=== PATIENT | female | born 1940 | race Caucasian/White ===

== ENCOUNTER 2020-12-11 21:54 | Inpatient (IN) | payer MEDICARE, BC ==
[2020-12-11 23:08] LABS: #Basophils 0.1 10x3/uL (0.0-0.2); #Monocytes 1.2 10x3/uL (0.0-1.1); #Neutrophils 10.6 10x3/uL (1.5-8.4); %Basophils 0.5 % (0.0-2.0); %Eosinophils 0.3 % (0.0-6.0); %Lymphocytes 9.7 % (18.0-47.0); %Monocytes 8.8 % (0.0-10.0); %Neutrophils 80.2 % (40.0-75.0); Hemoglobin 13.5 g/dL (12.0-15.5); Mean Corpuscular HGB CONC 33.3 g/dL (32.0-36.0); Mean Corpuscular Hemoglobin 29.9 pg (27.0-33.0); Mean Corpuscular Volume 89.8 fl (81.6-98.3); Mean Platelet Volume 9.9 fl (7.4-10.4); Platelet Count 323 10x3/uL (150-450); RBC Distribution Width 14.6 % (11.5-14.5); Red Blood Cell (RBC) Count 4.51 10x6/uL (3.90-5.03); White Blood Cell (WBC) Count 13.2 10x3/uL (3.5-10.5)
[2020-12-11 23:21] LABS: ALT (SGPT) 16 U/L (8-55); AST (SGOT) 18 U/L (5-34); Albumin 4.5 g/dL (3.4-4.8); Alkaline Phosphatase 82 U/L (40-110); Anion Gap 16 mmol/L (10-20); BUN (Urea Nitrogen) 33 mg/dL (9.8-20.1); Bilirubin, Total 0.8 mg/dL (0.2-1.2); CK (CPK) 129 U/L (29-168); Calc. Creatinine Clearance 0 mL/min (70-130); Calcium 9.4 mg/dL (7.8-10.44); Carbon Dioxide 22 mmol/L (23-31); Chloride 103 mmol/L (98-107); Globulin 2.8 g/dL (2.4-3.5); Glucose 132 mg/dL (83-110); Magnesium 2.2 mg/dL (1.6-2.6); Potassium 4.1 mmol/L (3.5-5.1); Protein, Total 7.3 g/dL (5.8-8.1); Sodium 137 mmol/L (136-145)
[2020-12-11 23:23] LABS: Acetaminophen Less than 6.0 mcg/mL (10.0-30.0); Alcohol Less than 10 mg/dL (Less than 10); Salicylate Less than 8.0 mg/dL (15.0-30.0)
[2020-12-12 00:44] LABS: Bilirubin Neg (Negative); Blood, Urine 25 (Negative); Clarity Cloudy (Clear); Glucose, Urine (Dipstick) Normal (Negative); Ketone, Urine 15 mg/dL (Negative); Leukocyte 25 (Negative); Nitrite Positive (Negative); Protein, Urine (Dipstick) 30 mg/dl (Neg-Trace); Urobilinogen Normal mg/dL (Less than 2)
[2020-12-12 00:51] LABS: Bacteria/HPF 3+ HPF (None Seen); RBC/HPF 0-3 HPF (0-3); Renal Epithelial 0-3 HPF (None Seen); Squamous Epithelial 0-3 HPF (0-3)
[2020-12-12 00:52] LABS: Mucous/LPF 3+ LPF (<2+)
[2020-12-12 00:56] LABS: Amphetamine Not Detected (NotDetected); Barbiturates Screen Not Detected (NotDetected); Benzodiazepine Screen Not Detected (NotDetected); Cocaine Metabolite Screen Not Detected (NotDetected); Methadone Not Detected (NotDetected); Methamphetamine Not Detected (NotDetected); Opiate Screen Not Detected (NotDetected); Oxycodone Screen Not Detected (NotDetected); Phencyclidine (PCP) Not Detected (NotDetected); THC/Cannabinoid Screen Not Detected (NotDetected); Tricyclic Screen Detected (NotDetected)
[2020-12-12] MEDS ORDERED: Metoprolol Tartrate 25 MG TAB ONE (01:54)
[2020-12-12] MEDS ORDERED: Cefepime 2 GM VIAL ONE (02:31)
[2020-12-12] MEDS ORDERED: Ziprasidone 20 MG VIAL ONE (02:38)
[2020-12-12] MEDS ORDERED: Sterile Water 10 ML ONE (02:39)
[2020-12-12] MEDS: Sodium Chloride 0.9% 1,000 ML IV SCH ×2 (04:10→16:59)
[2020-12-12] MEDS: Levothyroxine 150 MCG TAB PO SCH (09:50)
[2020-12-12] MEDS: Metoprolol Tartrate 25 MG TAB PO SCH ×2 (09:53→20:34)
[2020-12-12] MEDS: Magnesium Oxide 400 MG TAB PO SCH (09:54)
[2020-12-12] MEDS: Amlodipine 5 MG TAB PO SCH (09:55)
[2020-12-12] MEDS: Apixaban 5 MG TAB PO SCH ×2 (09:55→20:34)
[2020-12-12] MEDS: OXcarbazepine 300 MG TAB PO SCH ×3 (12:41→20:35)
[2020-12-12] MEDS: Cefepime 2 GM in Sodium Chloride 0.9% 100 ML IVPB SCH (15:31)
[2020-12-13 01:13] LABS: SARS-CoV-2 PCR by NAA Not Detected (NotDetected)
[2020-12-13] MEDS: Cefepime 2 GM in Sodium Chloride 0.9% 100 ML IVPB SCH ×2 (04:46→14:11)
[2020-12-13 05:03] LABS: #Basophils 0.1 10x3/uL (0.0-0.2); #Eosinphils 0.1 10x3/uL (0.0-0.5); #Monocytes 1.2 10x3/uL (0.0-1.1); #Neutrophils 11.6 10x3/uL (1.5-8.4); %Basophils 0.6 % (0.0-2.0); %Eosinophils 0.4 % (0.0-6.0); %Lymphocytes 6.4 % (18.0-47.0); %Monocytes 8.4 % (0.0-10.0); %Neutrophils 83.8 % (40.0-75.0); Hemoglobin 13.4 g/dL (12.0-15.5); Mean Corpuscular HGB CONC 33.4 g/dL (32.0-36.0); Mean Corpuscular Hemoglobin 30.9 pg (27.0-33.0); Mean Corpuscular Volume 92.4 fl (81.6-98.3); Mean Platelet Volume 10.4 fl (7.4-10.4); Platelet Count 293 10x3/uL (150-450); RBC Distribution Width 14.5 % (11.5-14.5); Red Blood Cell (RBC) Count 4.34 10x6/uL (3.90-5.03); White Blood Cell (WBC) Count 13.8 10x3/uL (3.5-10.5)
[2020-12-13 05:18] LABS: Anion Gap 16 mmol/L (10-20); BUN (Urea Nitrogen) 18 mg/dL (9.8-20.1); Calc. Creatinine Clearance 92 mL/min (70-130); Calcium 8.6 mg/dL (7.8-10.44); Carbon Dioxide 21 mmol/L (23-31); Chloride 105 mmol/L (98-107); Glucose 129 mg/dL (83-110); Potassium 4.2 mmol/L (3.5-5.1); Sodium 138 mmol/L (136-145)
[2020-12-13] MEDS: Levothyroxine 150 MCG TAB PO SCH (06:39)
[2020-12-13] MEDS: Sodium Chloride 0.9% 1,000 ML IV SCH ×2 (06:40→22:00)
[2020-12-13] MEDS: Apixaban 5 MG TAB PO SCH ×2 (09:12→20:59)
[2020-12-13] MEDS: Magnesium Oxide 400 MG TAB PO SCH (09:12)
[2020-12-13] MEDS: Metoprolol Tartrate 25 MG TAB PO SCH ×2 (09:12→20:59)
[2020-12-13] MEDS: OXcarbazepine 300 MG TAB PO SCH ×2 (09:12→21:00)
[2020-12-13] MEDS: Amlodipine 5 MG TAB PO SCH (09:12)
[2020-12-13] MEDS: Nystatin Powder 15 GM BOT TOP PRN (16:11)
[2020-12-13] MEDS: Gentamicin Ophth Soln 0.3% 5 ml Bottle R EYE SCH ×2 (16:13→21:00)
[2020-12-14] MEDS: Gentamicin Ophth Soln 0.3% 5 ml Bottle R EYE SCH ×6 (01:30→22:36)
[2020-12-14] MEDS: Cefepime 2 GM in Sodium Chloride 0.9% 100 ML IVPB SCH ×2 (02:57→17:03)
[2020-12-14] MEDS: Levothyroxine 150 MCG TAB PO SCH (06:15)
[2020-12-14] MEDS: Nystatin Powder 15 GM BOT TOP PRN (08:42)
[2020-12-14] MEDS: Metoprolol Tartrate 25 MG TAB PO SCH ×2 (08:43→22:34)
[2020-12-14] MEDS: OXcarbazepine 300 MG TAB PO SCH ×2 (08:43→22:33)
[2020-12-14] MEDS: Apixaban 5 MG TAB PO SCH ×2 (08:44→22:36)
[2020-12-14] MEDS: Amlodipine 5 MG TAB PO SCH (08:44)
[2020-12-14] MEDS: Magnesium Oxide 400 MG TAB PO SCH (08:44)
[2020-12-14] MEDS: Sodium Chloride 0.9% 1,000 ML IV SCH ×2 (13:00→22:37)
[2020-12-15] MEDS: Gentamicin Ophth Soln 0.3% 5 ml Bottle R EYE SCH ×6 (01:26→21:18)
[2020-12-15] MEDS: Cefepime 2 GM in Sodium Chloride 0.9% 100 ML IVPB SCH ×2 (02:44→14:23)
[2020-12-15] MEDS: Levothyroxine 150 MCG TAB PO SCH (05:28)
[2020-12-15] MEDS: Magnesium Oxide 400 MG TAB PO SCH (09:10)
[2020-12-15] MEDS: Apixaban 5 MG TAB PO SCH ×2 (09:10→21:18)
[2020-12-15] MEDS: Nystatin Powder 15 GM BOT TOP PRN (09:10)
[2020-12-15] MEDS: OXcarbazepine 300 MG TAB PO SCH ×2 (09:10→21:18)
[2020-12-15] MEDS: Amlodipine 5 MG TAB PO SCH (09:10)
[2020-12-15 09:30] LABS: #Basophils 0.1 10x3/uL (0.0-0.2); #Eosinphils 0.1 10x3/uL (0.0-0.5); #Monocytes 1.9 10x3/uL (0.0-1.1); #Neutrophils 15.8 10x3/uL (1.5-8.4); %Basophils 0.4 % (0.0-2.0); %Eosinophils 0.6 % (0.0-6.0); %Lymphocytes 5.5 % (18.0-47.0); %Neutrophils 83.1 % (40.0-75.0); Hemoglobin 14.2 g/dL (12.0-15.5); Mean Corpuscular HGB CONC 33.4 g/dL (32.0-36.0); Mean Corpuscular Hemoglobin 30.6 pg (27.0-33.0); Mean Corpuscular Volume 91.6 fl (81.6-98.3); Mean Platelet Volume 10.5 fl (7.4-10.4); Platelet Count 308 10x3/uL (150-450); RBC Distribution Width 14.2 % (11.5-14.5); Red Blood Cell (RBC) Count 4.64 10x6/uL (3.90-5.03); White Blood Cell (WBC) Count 19.1 10x3/uL (3.5-10.5)
[2020-12-15] MEDS: Metoprolol Tartrate 25 MG TAB PO SCH ×2 (10:59→21:18)
[2020-12-15] MEDS ORDERED: Metoprolol Tartrate 50 MG TAB PO SCH ×2 (11:00→21:00)
[2020-12-15] MEDS: Sodium Chloride 0.9% 1,000 ML IV SCH (13:03)
[2020-12-16] MEDS: Sodium Chloride 0.9% 1,000 ML IV SCH ×2 (01:20→20:45)
[2020-12-16] MEDS: Gentamicin Ophth Soln 0.3% 5 ml Bottle R EYE SCH ×4 (01:21→13:47)
[2020-12-16] MEDS: Cefepime 2 GM in Sodium Chloride 0.9% 100 ML IVPB SCH ×2 (03:00→14:27)
[2020-12-16] MEDS: Levothyroxine 150 MCG TAB PO SCH (05:37)
[2020-12-16] MEDS: Nystatin Powder 15 GM BOT TOP PRN (11:09)
[2020-12-16] MEDS: Magnesium Oxide 400 MG TAB PO SCH (11:09)
[2020-12-16] MEDS: OXcarbazepine 300 MG TAB PO SCH ×2 (11:09→20:47)
[2020-12-16] MEDS: Metoprolol Tartrate 25 MG TAB PO SCH ×2 (11:09→20:47)
[2020-12-16] MEDS: Apixaban 5 MG TAB PO SCH ×2 (11:09→20:47)
[2020-12-16] MEDS: Amlodipine 5 MG TAB PO SCH (11:10)
[2020-12-17] MEDS: Cefepime 2 GM in Sodium Chloride 0.9% 100 ML IVPB SCH (03:05)
[2020-12-17] MEDS: Levothyroxine 150 MCG TAB PO SCH (05:39)
[2020-12-17] MEDS: Apixaban 5 MG TAB PO SCH ×2 (09:39→22:03)
[2020-12-17] MEDS: Amlodipine 5 MG TAB PO SCH (09:39)
[2020-12-17] MEDS: Metoprolol Tartrate 25 MG TAB PO SCH ×2 (09:39→22:03)
[2020-12-17] MEDS: Magnesium Oxide 400 MG TAB PO SCH (09:40)
[2020-12-17] MEDS: OXcarbazepine 300 MG TAB PO SCH ×2 (09:44→22:03)
[2020-12-17] MEDS: Nystatin Powder 15 GM BOT TOP PRN (09:47)
[2020-12-17] MEDS: Sodium Chloride 0.9% 1,000 ML IV SCH (15:52)
[2020-12-17] MEDS: QUETIAPINE FUMARATE 200 MG PO SCH (18:30)
[2020-12-18] MEDS: Sodium Chloride 0.9% 1,000 ML IV SCH ×2 (09:54→10:30)
[2020-12-18] MEDS: Magnesium Oxide 400 MG TAB PO SCH (09:58)
[2020-12-18] MEDS: Apixaban 5 MG TAB PO SCH ×2 (09:59→21:09)
[2020-12-18] MEDS: Metoprolol Tartrate 25 MG TAB PO SCH ×2 (10:00→21:09)
[2020-12-18] MEDS: OXcarbazepine 300 MG TAB PO SCH ×2 (10:05→21:09)
[2020-12-18] MEDS: Levothyroxine 150 MCG TAB PO SCH (10:05)
[2020-12-18] MEDS: QUETIAPINE FUMARATE 200 MG PO SCH (21:10)
[2020-12-18 23:03] LABS: #Basophils 0.1 10x3/uL (0.0-0.2); #Eosinphils 0.2 10x3/uL (0.0-0.5); #Monocytes 1.6 10x3/uL (0.0-1.1); #Neutrophils 16.6 10x3/uL (1.5-8.4); %Basophils 0.4 % (0.0-2.0); %Eosinophils 0.9 % (0.0-6.0); %Lymphocytes 4.7 % (18.0-47.0); %Neutrophils 85.6 % (40.0-75.0); Hemoglobin 12.8 g/dL (12.0-15.5); Mean Corpuscular HGB CONC 33.6 g/dL (32.0-36.0); Mean Corpuscular Hemoglobin 30.3 pg (27.0-33.0); Mean Corpuscular Volume 90.3 fl (81.6-98.3); Mean Platelet Volume 10.7 fl (7.4-10.4); Platelet Count 330 10x3/uL (150-450); Red Blood Cell (RBC) Count 4.22 10x6/uL (3.90-5.03); White Blood Cell (WBC) Count 19.4 10x3/uL (3.5-10.5)
[2020-12-19 08:49] LABS: #Basophils 0.1 10x3/uL (0.0-0.2); #Eosinphils 0.3 10x3/uL (0.0-0.5); #Monocytes 1.1 10x3/uL (0.0-1.1); #Neutrophils 8.8 10x3/uL (1.5-8.4); %Basophils 0.6 % (0.0-2.0); %Eosinophils 2.2 % (0.0-6.0); %Lymphocytes 12.6 % (18.0-47.0); %Monocytes 9.4 % (0.0-10.0); %Neutrophils 74.7 % (40.0-75.0); Hemoglobin 12.2 g/dL (12.0-15.5); Mean Corpuscular HGB CONC 33.2 g/dL (32.0-36.0); Mean Corpuscular Hemoglobin 30.5 pg (27.0-33.0); Mean Platelet Volume 10.6 fl (7.4-10.4); Platelet Count 306 10x3/uL (150-450); RBC Distribution Width 14.1 % (11.5-14.5); White Blood Cell (WBC) Count 11.7 10x3/uL (3.5-10.5)
[2020-12-19] MEDS: Metoprolol Tartrate 25 MG TAB PO SCH ×2 (09:04→21:10)
[2020-12-19] MEDS: Magnesium Oxide 400 MG TAB PO SCH (09:05)
[2020-12-19] MEDS: Levothyroxine 150 MCG TAB PO SCH (09:06)
[2020-12-19] MEDS: OXcarbazepine 300 MG TAB PO SCH ×2 (09:06→21:09)
[2020-12-19] MEDS: Apixaban 5 MG TAB PO SCH ×2 (09:06→21:09)
[2020-12-19] MEDS: QUETIAPINE FUMARATE 200 MG PO SCH (21:09)
[2020-12-20 00:48] LABS: Bilirubin Neg (Negative); Blood, Urine 10 (Negative); Clarity Clear (Clear); Glucose, Urine (Dipstick) Normal (Negative); Ketone, Urine 50 mg/dL (Negative); Leukocyte 25 (Negative); Nitrite Negative (Negative); Protein, Urine (Dipstick) Negative (Neg-Trace); Specific Gravity, Urine 1.025 (1.002-1.036); Urobilinogen Normal mg/dL (Less than 2)
[2020-12-20 00:51] LABS: Urine Culture Reflex No No
[2020-12-20 01:01] LABS: Bacteria/HPF 1+ HPF (None Seen); RBC/HPF 0-3 HPF (0-3)
[2020-12-20] MEDS: Levothyroxine 150 MCG TAB PO SCH (05:33)
[2020-12-20 05:40] LABS: #Basophils 0.1 10x3/uL (0.0-0.2); #Eosinphils 0.3 10x3/uL (0.0-0.5); #Monocytes 1.5 10x3/uL (0.0-1.1); #Neutrophils 8.9 10x3/uL (1.5-8.4); %Basophils 0.6 % (0.0-2.0); %Eosinophils 2.3 % (0.0-6.0); %Lymphocytes 11.3 % (18.0-47.0); %Monocytes 12.6 % (0.0-10.0); %Neutrophils 72.7 % (40.0-75.0); Hemoglobin 12.8 g/dL (12.0-15.5); Mean Corpuscular HGB CONC 33.5 g/dL (32.0-36.0); Mean Corpuscular Hemoglobin 30.3 pg (27.0-33.0); Mean Corpuscular Volume 90.3 fl (81.6-98.3); Mean Platelet Volume 10.9 fl (7.4-10.4); Platelet Count 318 10x3/uL (150-450); RBC Distribution Width 13.9 % (11.5-14.5); Red Blood Cell (RBC) Count 4.23 10x6/uL (3.90-5.03); White Blood Cell (WBC) Count 12.2 10x3/uL (3.5-10.5)
[2020-12-20] MEDS: Metoprolol Tartrate 25 MG TAB PO SCH ×2 (08:23→20:30)
[2020-12-20] MEDS: Apixaban 5 MG TAB PO SCH ×2 (08:24→20:30)
[2020-12-20] MEDS: OXcarbazepine 300 MG TAB PO SCH ×2 (08:24→20:30)
[2020-12-20] MEDS: Magnesium Oxide 400 MG TAB PO SCH (08:24)
[2020-12-20] MEDS ORDERED: Milk Of Magnesia 30 ML UDCUP PO PRN (08:35)
[2020-12-20] MEDS: Polyethylene Glycol 3350 17 GM Packet PO SCH (10:33)
[2020-12-20] MEDS: QUETIAPINE FUMARATE 200 MG PO SCH (20:31)
[2020-12-21] MEDS: Levothyroxine 150 MCG TAB PO SCH (05:21)
[2020-12-21 08:21] LABS: #Basophils 0.1 10x3/uL (0.0-0.2); #Eosinphils 0.3 10x3/uL (0.0-0.5); #Monocytes 1.2 10x3/uL (0.0-1.1); #Neutrophils 6.7 10x3/uL (1.5-8.4); %Basophils 0.9 % (0.0-2.0); %Eosinophils 2.5 % (0.0-6.0); %Lymphocytes 20.3 % (18.0-47.0); %Monocytes 11.7 % (0.0-10.0); %Neutrophils 64.2 % (40.0-75.0); Hemoglobin 12.3 g/dL (12.0-15.5); Mean Corpuscular HGB CONC 33.1 g/dL (32.0-36.0); Mean Corpuscular Volume 90.7 fl (81.6-98.3); Mean Platelet Volume 10.9 fl (7.4-10.4); Platelet Count 346 10x3/uL (150-450); White Blood Cell (WBC) Count 10.4 10x3/uL (3.5-10.5)
[2020-12-21] MEDS: Magnesium Oxide 400 MG TAB PO SCH (10:15)
[2020-12-21] MEDS: OXcarbazepine 300 MG TAB PO SCH ×2 (10:15→20:10)
[2020-12-21] MEDS: Metoprolol Tartrate 25 MG TAB PO SCH ×2 (10:15→20:10)
[2020-12-21] MEDS: Polyethylene Glycol 3350 17 GM Packet PO SCH (10:15)
[2020-12-21] MEDS: Apixaban 5 MG TAB PO SCH ×2 (10:15→20:10)
[2020-12-21] MEDS: QUETIAPINE FUMARATE 200 MG PO SCH (20:10)
[2020-12-22] MEDS: Levothyroxine 150 MCG TAB PO SCH (05:16)
[2020-12-22 05:20] VITALS: BMI 33.3
[2020-12-22 08:16] VITALS: BP 161/80; TEMP 98.2
[2020-12-22] MEDS: Apixaban 5 MG TAB PO SCH (08:28)
[2020-12-22] MEDS: OXcarbazepine 300 MG TAB PO SCH (08:28)
[2020-12-22] MEDS: Magnesium Oxide 400 MG TAB PO SCH (08:28)
[2020-12-22] MEDS: Metoprolol Tartrate 25 MG TAB PO SCH (08:28)
[2020-12-22] MEDS: Polyethylene Glycol 3350 17 GM Packet PO SCH (08:28)
== END 2020-12-22 16:12 | disposition home or self-care (01) | DRG 871 ==
LOC: CSHERS 21:54 → CSHTELE 12-12 03:41
PROVIDERS: ADMIT Family Medicine; ATTEND Family Medicine
DX: A41.9 Sepsis, unspecified organism (principal); G93.41 Metabolic encephalopathy; N39.0 Urinary tract infection, site not specified; I48.20 Chronic atrial fibrillation, unspecified; F23 Brief psychotic disorder; Z20.822 Contact with and (suspected) exposure to COVID-19; F31.9 Bipolar disorder, unspecified; E03.9 Hypothyroidism, unspecified; G30.9 Alzheimer's disease, unspecified; F02.80 Dementia in other diseases classified elsewhere, unspecified severity, without behavioral disturbance, psychotic disturbance, mood disturbance, and anxiety; I10 Essential (primary) hypertension; Z90.49 Acquired absence of other specified parts of digestive tract; Z90.89 Acquired absence of other organs; Z90.710 Acquired absence of both cervix and uterus; Z85.850 Personal history of malignant neoplasm of thyroid; D72.829 Elevated white blood cell count, unspecified; Z88.1 Allergy status to other antibiotic agents; Z88.0 Allergy status to penicillin; Z79.01 Long term (current) use of anticoagulants; Z79.890 Hormone replacement therapy; Z79.899 Other long term (current) drug therapy; Z88.8 Allergy status to other drugs, medicaments and biological substances
CPT/HCPCS: 36415; 51701; 70450; 71045; 80048; 80053; 80306; 80307; 81001; 81003; 81015; 82550; 83735; 84443; 84484; 85025; 87040; 87077; 87086; 87186; 87635; 93005; 96372; 96374; J0692; J3486; J3490; J7050; U0003; U0005

== ENCOUNTER 2022-02-05 11:34 | Inpatient (IN) | payer MEDICARE, BC ==
[2022-02-05] MEDS ORDERED: Vancomycin HCl 500 MG VIAL ONE (12:06)
[2022-02-05] MEDS ORDERED: Cefepime 2 GM VIAL ONE (12:06)
[2022-02-05 12:28] LABS: #Basophils 0.1 10x3/uL (0.0-0.2); #Eosinphils 0.1 10x3/uL (0.0-0.5); #Monocytes 1.1 10x3/uL (0.0-1.1); #Neutrophils 7.3 10x3/uL (1.5-8.4); %Basophils 0.7 % (0.0-2.0); %Eosinophils 0.6 % (0.0-6.0); %Lymphocytes 12.3 % (18.0-47.0); %Monocytes 10.8 % (0.0-10.0); %Neutrophils 75.2 % (40.0-75.0); Hemoglobin 12.9 g/dL (12.0-15.5); Mean Corpuscular HGB CONC 32.7 g/dL (32.0-36.0); Mean Corpuscular Hemoglobin 30.3 pg (27.0-33.0); Mean Corpuscular Volume 92.5 fl (81.6-98.3); Platelet Count 356 10x3/uL (150-450); RBC Distribution Width 15.3 % (11.5-14.5); Red Blood Cell (RBC) Count 4.26 10x6/uL (3.90-5.03); White Blood Cell (WBC) Count 9.8 10x3/uL (3.5-10.5)
[2022-02-05 12:44] LABS: PTT 31.9 sec (22.0-33.0)
[2022-02-05 12:52] LABS: ALT (SGPT) 26 U/L (8-55); AST (SGOT) 28 U/L (5-34); Albumin 4.5 g/dL (3.4-4.8); Alkaline Phosphatase 85 U/L (40-110); Anion Gap 17 mmol/L (10-20); BUN (Urea Nitrogen) 17 mg/dL (9.8-20.1); Bilirubin, Total 0.5 mg/dL (0.2-1.2); Calc. Creatinine Clearance 0 mL/min (70-130); Calcium 9.2 mg/dL (7.8-10.44); Carbon Dioxide 23 mmol/L (23-31); Chloride 99 mmol/L (98-107); Globulin 2.3 g/dL (2.4-3.5); Glucose 116 mg/dL (83-110); Lipase 15 U/L (8-78); Potassium 4.7 mmol/L (3.5-5.1); Protein, Total 6.8 g/dL (5.8-8.1); Sodium 134 mmol/L (136-145)
[2022-02-05 13:06] LABS: SARS-CoV-2 NAA Rapid Test Not Detected (NotDetected)
[2022-02-05 13:07] LABS: Acetaminophen Less than 10.0 mcg/mL (10.0-30.0); Alcohol Less than 10 mg/dL (Less than 10); Salicylate Less than 8.0 mg/dL (15.0-30.0)
[2022-02-05 13:36] LABS: Bilirubin Neg (Negative); Blood, Urine 150 (Negative); Clarity Clear (Clear); Glucose, Urine (Dipstick) Normal (Negative); Ketone, Urine Negative (Negative); Leukocyte 25 (Negative); Nitrite Negative (Negative); Protein, Urine (Dipstick) Negative (Neg-Trace); Specific Gravity, Urine 1.005 (1.002-1.036); Urobilinogen Normal mg/dL (Less than 2)
[2022-02-05 13:40] LABS: Bacteria/HPF Rare-Few HPF (None Seen); Squamous Epithelial 0-3 HPF (0-3)
[2022-02-05 13:46] LABS: Amphetamine Not Detected (NotDetected); Barbiturates Screen Not Detected (NotDetected); Benzodiazepine Screen Not Detected (NotDetected); Cocaine Metabolite Screen Not Detected (NotDetected); Methadone Not Detected (NotDetected); Methamphetamine Not Detected (NotDetected); Opiate Screen Not Detected (NotDetected); Oxycodone Screen Not Detected (NotDetected); Phencyclidine (PCP) Not Detected (NotDetected); THC/Cannabinoid Screen Not Detected (NotDetected); Tricyclic Screen Detected (NotDetected)
[2022-02-05] MEDS ORDERED: Acetaminophen 325 MG TAB PO PRN (15:01)
[2022-02-05] MEDS ORDERED: Ondansetron PF 4 MG/2 ML Vial IVP PRN (15:01)
[2022-02-05] MEDS ORDERED: Senokot S 8.6-50 MG TAB PO PRN (15:01)
[2022-02-05] MEDS ORDERED: Metoprolol Tartrate 5 MG/5 ML VIAL IVP PRN (15:10)
[2022-02-05] MEDS ORDERED: Haloperidol Lactate 5 MG/ML VIAL IM SCH (15:15)
[2022-02-05] MEDS ORDERED: Ziprasidone 20 MG VIAL ONE (15:52)
[2022-02-05] MEDS ORDERED: Lorazepam 2 MG/ML VIAL SLOW IVP PRN (17:20)
[2022-02-05] MEDS ORDERED: Lorazepam 2 MG/ML VIAL ONE (17:25)
[2022-02-05] MEDS ORDERED: Lorazepam 2 MG/ML VIAL SLOW IVP SCH (18:15)
[2022-02-05 20:15] VITALS: BMI 33.9
[2022-02-05] MEDS ORDERED: Enoxaparin Sodium 120 MG/0.8 ML SYRINGE SC SCH (21:00)
[2022-02-05] MEDS: Metoprolol Tartrate 5 MG/5 ML VIAL IVP SCH ×2 (22:30→23:33)
[2022-02-05] MEDS: Dextrose 5 % And 0.9 % NaCl 1,000 ML IV SCH (22:30)
[2022-02-06] MEDS: Dextrose 5 % And 0.9 % NaCl 1,000 ML IV SCH ×2 (05:26→19:06)
[2022-02-06] MEDS: Metoprolol Tartrate 5 MG/5 ML VIAL IVP SCH (06:15)
[2022-02-06] MEDS ORDERED: Ziprasidone 20 MG VIAL IM SCH ×3 (11:15→14:30)
[2022-02-06] MEDS ORDERED: Sterile Water 10 ML VIAL FS SCH ×2 (11:30→13:00)
[2022-02-06] MEDS: Amlodipine 5 MG TAB PO SCH ×2 (11:46→19:05)
[2022-02-06] MEDS: Metoprolol Tartrate 25 MG TAB PO SCH ×3 (11:47→22:49)
[2022-02-06] MEDS: Apixaban 5 MG TAB PO SCH ×3 (11:48→22:49)
[2022-02-06] MEDS: FLUoxetine HCl 10 MG CAP PO SCH ×2 (11:48→19:09)
[2022-02-06] MEDS: OXcarbazepine 300 MG TAB PO SCH ×3 (11:52→22:49)
[2022-02-06] MEDS: Furosemide 20 MG TAB PO SCH ×2 (11:55→19:09)
[2022-02-06] MEDS: Magnesium Oxide 250 MG TAB PO SCH (22:49)
[2022-02-07] MEDS ORDERED: Ziprasidone 20 MG VIAL IM SCH (01:30)
[2022-02-07] MEDS ORDERED: Sterile Water 10 ML VIAL FS PRN (01:30)
[2022-02-07] MEDS ORDERED: VANCOMYCIN 2 GRAM/400 ML BAG 2 GM in Premix Bag 1 BAG IVPB SCH (02:00)
[2022-02-07] MEDS ORDERED: VANCOMYCIN 2 GRAM/400 ML BAG IVPB SCH (02:00)
[2022-02-07 05:13] LABS: Anion Gap 18 mmol/L (10-20); BUN (Urea Nitrogen) 10 mg/dL (9.8-20.1); Calc. Creatinine Clearance 95 mL/min (70-130); Calcium 9.2 mg/dL (7.8-10.44); Carbon Dioxide 25 mmol/L (23-31); Chloride 101 mmol/L (98-107); Glucose 131 mg/dL (83-110); Potassium 4.2 mmol/L (3.5-5.1); Sodium 140 mmol/L (136-145)
[2022-02-07 05:15] LABS: #Basophils 0.1 10x3/uL (0.0-0.2); #Monocytes 2.2 10x3/uL (0.0-1.1); #Neutrophils 15.3 10x3/uL (1.5-8.4); %Basophils 0.4 % (0.0-2.0); %Eosinophils 0.2 % (0.0-6.0); %Lymphocytes 8.1 % (18.0-47.0); %Monocytes 11.2 % (0.0-10.0); %Neutrophils 79.6 % (40.0-75.0); Hemoglobin 13.7 g/dL (12.0-15.5); Mean Corpuscular HGB CONC 33.2 g/dL (32.0-36.0); Mean Corpuscular Hemoglobin 30.9 pg (27.0-33.0); Mean Platelet Volume 9.7 fl (7.4-10.4); Platelet Count 369 10x3/uL (150-450); RBC Distribution Width 15.2 % (11.5-14.5); Red Blood Cell (RBC) Count 4.44 10x6/uL (3.90-5.03); White Blood Cell (WBC) Count 19.3 10x3/uL (3.5-10.5)
[2022-02-07] MEDS: Levothyroxine 150 MCG TAB PO SCH (06:01)
[2022-02-07] MEDS: Dextrose 5 % And 0.9 % NaCl 1,000 ML IV SCH (14:55)
[2022-02-07] MEDS: Amlodipine 5 MG TAB PO SCH (14:55)
[2022-02-07] MEDS: Furosemide 20 MG TAB PO SCH (14:56)
[2022-02-07] MEDS: Apixaban 5 MG TAB PO SCH (14:56)
[2022-02-07] MEDS: Metoprolol Tartrate 25 MG TAB PO SCH (14:56)
[2022-02-07] MEDS: FLUoxetine HCl 10 MG CAP PO SCH (14:56)
[2022-02-07] MEDS: OXcarbazepine 300 MG TAB PO SCH (14:56)
[2022-02-07] MEDS ORDERED: hydrALAZINE 20 MG/ML VIAL SLOW IVP PRN (15:43)
[2022-02-08] MEDS: Dextrose 5 % And 0.9 % NaCl 1,000 ML IV SCH (00:59)
[2022-02-08] MEDS: Magnesium Oxide 250 MG TAB PO SCH ×2 (01:00→21:49)
[2022-02-08] MEDS: OXcarbazepine 300 MG TAB PO SCH ×3 (01:00→21:49)
[2022-02-08] MEDS: Metoprolol Tartrate 25 MG TAB PO SCH ×3 (01:00→21:49)
[2022-02-08] MEDS: Apixaban 5 MG TAB PO SCH ×3 (01:00→21:49)
[2022-02-08 05:16] LABS: Anion Gap 15 mmol/L (10-20); BUN (Urea Nitrogen) 12 mg/dL (9.8-20.1); Calc. Creatinine Clearance 101 mL/min (70-130); Calcium 8.5 mg/dL (7.8-10.44); Carbon Dioxide 21 mmol/L (23-31); Chloride 105 mmol/L (98-107); Glucose 144 mg/dL (83-110); Potassium 3.4 mmol/L (3.5-5.1); Sodium 138 mmol/L (136-145)
[2022-02-08 05:49] LABS: #Basophils 0.1 10x3/uL (0.0-0.2); #Monocytes 1.8 10x3/uL (0.0-1.1); #Neutrophils 14.4 10x3/uL (1.5-8.4); %Basophils 0.3 % (0.0-2.0); %Eosinophils 0.2 % (0.0-6.0); %Lymphocytes 6.9 % (18.0-47.0); %Monocytes 10.3 % (0.0-10.0); %Neutrophils 81.8 % (40.0-75.0); Hemoglobin 13.9 g/dL (12.0-15.5); Mean Corpuscular HGB CONC 33.6 g/dL (32.0-36.0); Mean Corpuscular Hemoglobin 30.8 pg (27.0-33.0); Mean Corpuscular Volume 91.8 fl (81.6-98.3); Mean Platelet Volume 10.2 fl (7.4-10.4); Platelet Count 383 10x3/uL (150-450); RBC Distribution Width 15.3 % (11.5-14.5); Red Blood Cell (RBC) Count 4.51 10x6/uL (3.90-5.03); White Blood Cell (WBC) Count 17.6 10x3/uL (3.5-10.5)
[2022-02-08] MEDS: Levothyroxine 150 MCG TAB PO SCH (06:09)
[2022-02-08] MEDS: Amlodipine 5 MG TAB PO SCH (09:15)
[2022-02-08] MEDS: Furosemide 20 MG TAB PO SCH (09:16)
[2022-02-08] MEDS: FLUoxetine HCl 10 MG CAP PO SCH (09:16)
[2022-02-08] MEDS ORDERED: Potassium Chloride 20 MEQ TAB PO SCH (10:00)
[2022-02-08 23:19] VITALS: TEMP 96.8
[2022-02-09 04:21] LABS: #Basophils 0.1 10x3/uL (0.0-0.2); #Eosinphils 0.1 10x3/uL (0.0-0.5); #Monocytes 1.4 10x3/uL (0.0-1.1); #Neutrophils 8.3 10x3/uL (1.5-8.4); %Basophils 0.5 % (0.0-2.0); %Eosinophils 0.9 % (0.0-6.0); %Lymphocytes 15.4 % (18.0-47.0); %Monocytes 11.9 % (0.0-10.0); %Neutrophils 70.9 % (40.0-75.0); Mean Corpuscular HGB CONC 33.9 g/dL (32.0-36.0); Mean Corpuscular Volume 91.4 fl (81.6-98.3); Platelet Count 344 10x3/uL (150-450); RBC Distribution Width 15.4 % (11.5-14.5); Red Blood Cell (RBC) Count 4.19 10x6/uL (3.90-5.03); White Blood Cell (WBC) Count 11.7 10x3/uL (3.5-10.5)
[2022-02-09 04:36] LABS: Anion Gap 14 mmol/L (10-20); BUN (Urea Nitrogen) 20 mg/dL (9.8-20.1); Calc. Creatinine Clearance 93 mL/min (70-130); Calcium 8.6 mg/dL (7.8-10.44); Carbon Dioxide 24 mmol/L (23-31); Chloride 106 mmol/L (98-107); Glucose 114 mg/dL (83-110); Potassium 3.4 mmol/L (3.5-5.1); Sodium 141 mmol/L (136-145)
[2022-02-09] MEDS: Amlodipine 5 MG TAB PO SCH ×2 (11:05→14:02)
[2022-02-09] MEDS: Levothyroxine 150 MCG TAB PO SCH (11:05)
[2022-02-09] MEDS: Apixaban 5 MG TAB PO SCH ×2 (11:05→13:59)
[2022-02-09] MEDS: FLUoxetine HCl 10 MG CAP PO SCH ×2 (11:06→14:02)
[2022-02-09] MEDS: OXcarbazepine 300 MG TAB PO SCH (11:06)
[2022-02-09] MEDS: Metoprolol Tartrate 25 MG TAB PO SCH ×2 (11:06→14:02)
[2022-02-09] MEDS: Furosemide 20 MG TAB PO SCH ×2 (11:06→13:59)
[2022-02-09 11:23] VITALS: BP 174/100
[2022-02-09] MEDS ORDERED: OLANZapine 10 MG VIAL IM SCH (12:45)
[2022-02-09] MEDS ORDERED: Sterile Water 10 ML VIAL FS SCH (12:45)
== END 2022-02-09 15:10 | DRG 56 ==
LOC: CSHERS 11:34 → CSHTELE 18:03 → OBSVTOIN 18:03 → CSHTELE 19:20
PROVIDERS: ADMIT Family Medicine; ATTEND Family Medicine
DX: G30.9 Alzheimer's disease, unspecified (principal); G93.41 Metabolic encephalopathy; N39.0 Urinary tract infection, site not specified; I48.20 Chronic atrial fibrillation, unspecified; F02.81 Dementia in other diseases classified elsewhere, unspecified severity, with behavioral disturbance; I48.92 Unspecified atrial flutter; G30.8 Other Alzheimer's disease; F31.9 Bipolar disorder, unspecified; E03.9 Hypothyroidism, unspecified; I10 Essential (primary) hypertension; Z20.822 Contact with and (suspected) exposure to COVID-19; Z88.0 Allergy status to penicillin; Z79.01 Long term (current) use of anticoagulants; Z88.8 Allergy status to other drugs, medicaments and biological substances; Z79.890 Hormone replacement therapy; Z79.899 Other long term (current) drug therapy; Z85.850 Personal history of malignant neoplasm of thyroid; Z98.890 Other specified postprocedural states
CPT/HCPCS: 36415; 70450; 71045; 80048; 80053; 80306; 80307; 81003; 81015; 82140; 83605; 83690; 84484; 85025; 85610; 85730; 87040; 87077; 87086; 87149; 93005; J0360; J0692; J1650; J1956; J2060; J2358; J3370; J3486; J7042

== ENCOUNTER 2022-06-22 16:38 | Inpatient (IN) | payer MEDICARE, BC ==
[2022-06-22 17:35] LABS: Hemoglobin 13.7 g/dL (12.0-15.5); Mean Corpuscular HGB CONC 34.7 g/dL (32.0-36.0); Mean Corpuscular Hemoglobin 29.8 pg (27.0-33.0); Mean Corpuscular Volume 85.9 fl (81.6-98.3); Platelet Count 385 10x3/uL (150-450); RBC Distribution Width 15.7 % (11.5-14.5); White Blood Cell (WBC) Count 26.6 10x3/uL (3.5-10.5)
[2022-06-22 17:37] LABS: Bilirubin 1+ (Negative); Blood, Urine 150 (Negative); Clarity Cloudy (Clear); Glucose, Urine (Dipstick) Normal (Negative); Ketone, Urine 5 mg/dL (Negative); Leukocyte 500 (Negative); Nitrite Negative (Negative); Protein, Urine (Dipstick) 100 mg/dl (Neg-Trace)
[2022-06-22 17:40] LABS: ALT (SGPT) 11 U/L (8-55); AST (SGOT) 16 U/L (5-34); Albumin 4.4 g/dL (3.4-4.8); Alkaline Phosphatase 94 U/L (40-110); Anion Gap 19 mmol/L (10-20); BUN (Urea Nitrogen) 20 mg/dL (9.8-20.1); Calc. Creatinine Clearance 0 mL/min (70-130); Calcium 9.6 mg/dL (7.8-10.44); Carbon Dioxide 18 mmol/L (23-31); Chloride 94 mmol/L (98-107); Estimated GFR 46; Globulin 2.4 g/dL (2.4-3.5); Glucose 168 mg/dL (83-110); Potassium 5.1 mmol/L (3.5-5.1); Protein, Total 6.8 g/dL (5.8-8.1); Sodium 126 mmol/L (136-145)
[2022-06-22 17:44] LABS: Bacteria/HPF 3+ HPF (None Seen); Calcium Oxalate Crystals Rare HPF (None Seen); Mucous/LPF 1+ LPF (<2+); Squamous Epithelial 0-3 HPF (0-3); WBC/HPF Greater Than 50 HPF (0-3)
[2022-06-22 18:27] LABS: Band 6 % (5-11); Lymphocytes 3 % (21-51); Monocytes 8 % (0-10)
[2022-06-22 18:30] LABS: Anisocytosis SLIGHT = 6-15 cells (100X) (0-5/hpf); Microcytosis SLIGHT = 6-15 cells (100X) (0-5/hpf); Neutrophil 83 % (42-75); Platelet Morphology Comment Appears Adequate; Toxic Granulation SLIGHT
[2022-06-22] MEDS ORDERED: cefTRIAXone\\ROCEPHIN 1 GM VIAL ONE (18:30)
[2022-06-22 18:32] LABS: MDiff Complete? YES
[2022-06-22] MEDS ORDERED: Communication Order-Pharmacy FS PRN (21:41)
[2022-06-22] MEDS ORDERED: Acetaminophen 325 MG TAB PO PRN (21:45)
[2022-06-22 22:09] LABS: Magnesium 2.1 mg/dL (1.6-2.6)
[2022-06-22] MEDS: Lactated Ringer's 1,000 ML IV SCH (22:22)
[2022-06-22] MEDS ORDERED: cefTRIAXone\\ROCEPHIN 1 GM in Sodium Chloride 0.9% 100 ML IVPB SCH (22:30)
[2022-06-22] MEDS ORDERED: FLU VACC QS2022-23(65YR UP)/PF 240 MCG/0.7 ML SYRINGE IM ONE (22:45)
[2022-06-22 23:34] LABS: SARS-CoV-2 NAA Rapid Test Not Detected (NotDetected)
[2022-06-23 03:22] VITALS: BMI 35.7
[2022-06-23] MEDS: Levothyroxine 150 MCG TAB PO SCH (06:18)
[2022-06-23 06:49] LABS: Anion Gap 15 mmol/L (10-20); BUN (Urea Nitrogen) 18 mg/dL (9.8-20.1); Calc. Creatinine Clearance 100 mL/min (70-130); Calcium 8.8 mg/dL (7.8-10.44); Carbon Dioxide 20 mmol/L (23-31); Chloride 98 mmol/L (98-107); Estimated GFR 82; Glucose 122 mg/dL (83-110); Sodium 129 mmol/L (136-145)
[2022-06-23 06:58] LABS: Hemoglobin 12.3 g/dL (12.0-15.5); Mean Corpuscular HGB CONC 34.8 g/dL (32.0-36.0); Mean Corpuscular Volume 86.1 fl (81.6-98.3); Platelet Count 350 10x3/uL (150-450); RBC Distribution Width 15.7 % (11.5-14.5); White Blood Cell (WBC) Count 20.5 10x3/uL (3.5-10.5)
[2022-06-23 08:09] LABS: MDiff Complete? YES
[2022-06-23 08:11] LABS: Lymphocytes 7 % (21-51); Monocytes 12 % (0-10); Neutrophil 81 % (42-75)
[2022-06-23 08:12] LABS: Platelet Morphology Comment Appears Adequate
[2022-06-23 08:13] LABS: Ovalocytes SLIGHT = 2-5 cells (100X) (0-1/hpf)
[2022-06-23] MEDS: Lactated Ringer's 1,000 ML IV SCH ×2 (09:38→17:47)
[2022-06-23] MEDS: OXcarbazepine 300 MG TAB PO SCH ×2 (09:39→21:20)
[2022-06-23] MEDS: Metoprolol Tartrate 25 MG TAB PO SCH (09:40)
[2022-06-23] MEDS: Amlodipine 5 MG TAB PO SCH (09:40)
[2022-06-23] MEDS: Magnesium Oxide 400 MG TAB PO SCH (09:40)
[2022-06-23] MEDS: Furosemide 20 MG TAB PO SCH (09:40)
[2022-06-23] MEDS: FLUoxetine HCl 10 MG CAP PO SCH (09:40)
[2022-06-23] MEDS: Apixaban 5 MG TAB PO SCH ×2 (09:40→21:21)
[2022-06-23] MEDS ORDERED: Nystatin Powder 15 GM BOT TOP PRN (16:06)
[2022-06-23] MEDS ORDERED: Metoprolol Tartrate 25 MG TAB PO SCH (21:00)
[2022-06-23] MEDS ORDERED: cefTRIAXone\\ROCEPHIN 2 GM in Sodium Chloride 0.9% 100 ML IVPB SCH (22:30)
[2022-06-24] MEDS: Levothyroxine 150 MCG TAB PO SCH (06:00)
[2022-06-24] MEDS: Lactated Ringer's 1,000 ML IV SCH (06:00)
[2022-06-24] MEDS ORDERED: Labetalol HCl 100 MG/20 ML VIAL SLOW IVP PRN (09:23)
[2022-06-24 09:34] LABS: Hemoglobin 12.1 g/dL (12.0-15.5); Mean Corpuscular HGB CONC 34.4 g/dL (32.0-36.0); Mean Corpuscular Volume 87.1 fl (81.6-98.3); Mean Platelet Volume 9.9 fl (7.4-10.4); Platelet Count 345 10x3/uL (150-450); RBC Distribution Width 15.7 % (11.5-14.5); Red Blood Cell (RBC) Count 4.04 10x6/uL (3.90-5.03); White Blood Cell (WBC) Count 20.6 10x3/uL (3.5-10.5)
[2022-06-24 09:45] LABS: Anion Gap 14 mmol/L (10-20); BUN (Urea Nitrogen) 12 mg/dL (9.8-20.1); Calc. Creatinine Clearance 112 mL/min (70-130); Calcium 8.7 mg/dL (7.8-10.44); Carbon Dioxide 23 mmol/L (23-31); Chloride 99 mmol/L (98-107); Estimated GFR 88; Glucose 125 mg/dL (83-110); Potassium 4.2 mmol/L (3.5-5.1); Sodium 132 mmol/L (136-145)
[2022-06-24 09:58] LABS: MDiff Complete? YES
[2022-06-24 10:03] LABS: Eosinophils 1 % (0-10); Lymphocytes 6 % (21-51); Monocytes 11 % (0-10); Neutrophil 81 % (42-75); Platelet Morphology Comment Appears Adequate; Reactive Lymphocytes 1 % (0-10)
[2022-06-24 10:05] LABS: Ovalocytes SLIGHT = 2-5 cells (100X) (0-1/hpf)
[2022-06-24] MEDS: OXcarbazepine 300 MG TAB PO SCH (10:41)
[2022-06-24] MEDS: Amlodipine 5 MG TAB PO SCH (10:42)
[2022-06-24] MEDS: Metoprolol Tartrate 25 MG TAB PO SCH (10:42)
[2022-06-24] MEDS: Magnesium Oxide 400 MG TAB PO SCH (10:42)
[2022-06-24] MEDS: Apixaban 5 MG TAB PO SCH (10:42)
[2022-06-24] MEDS: Furosemide 20 MG TAB PO SCH (10:42)
[2022-06-24] MEDS: FLUoxetine HCl 10 MG CAP PO SCH (10:43)
[2022-06-24 12:54] VITALS: TEMP 98.9
[2022-06-24] MEDS ORDERED: FLU VACC QS2022-23(65YR UP)/PF 240 MCG/0.7 ML SYRINGE IM ONE (14:15)
[2022-06-24 14:35] VITALS: BP 135/74
== END 2022-06-24 16:00 | disposition home health service (06) | DRG 872 ==
LOC: CSHERS 16:38 → CSHTELE 19:08
PROVIDERS: ADMIT Family Medicine; ATTEND Internal Medicine
DX: A41.9 Sepsis, unspecified organism (principal); N39.0 Urinary tract infection, site not specified; I48.20 Chronic atrial fibrillation, unspecified; E87.1 Hypo-osmolality and hyponatremia; Z20.822 Contact with and (suspected) exposure to COVID-19; E03.9 Hypothyroidism, unspecified; I12.9 Hypertensive chronic kidney disease with stage 1 through stage 4 chronic kidney disease, or unspecified chronic kidney disease; F31.9 Bipolar disorder, unspecified; G30.9 Alzheimer's disease, unspecified; F02.80 Dementia in other diseases classified elsewhere, unspecified severity, without behavioral disturbance, psychotic disturbance, mood disturbance, and anxiety; N18.31 Chronic kidney disease, stage 3a; Z79.899 Other long term (current) drug therapy; Z79.890 Hormone replacement therapy; Z79.01 Long term (current) use of anticoagulants; Z88.8 Allergy status to other drugs, medicaments and biological substances; Z88.1 Allergy status to other antibiotic agents; Z88.0 Allergy status to penicillin; Z85.850 Personal history of malignant neoplasm of thyroid; Z80.52 Family history of malignant neoplasm of bladder
CPT/HCPCS: 36415; 71045; 80048; 80053; 81003; 81015; 83605; 83735; 83935; 84300; 84443; 85025; 87040; 87077; 87086; 87186; 90471; 90662; 93005; G0008; J0696; J3490; J7120; U0002